=== PATIENT | male | born 1995 | race Caucasian/White ===

== ENCOUNTER 2018-05-19 17:42 | Emergency (ER) | payer BC ==
[2018-05-19] MEDS ORDERED: Ketorolac Tromethamine 60 MG/2 ML VIAL ONE (19:49)
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
--- NOTE | 2018-05-19 20:25 | RAD ---
RIGHT SHOULDER THREE VIEW 05/19/18 HISTORY: Pain. Soreness. COMPARISON: None. FINDINGS: No fracture. No malalignment. The ribs are unremarkable. Acromioclavicular alignment is normal. IMPRESSION: No acute fracture or malalignment. POS: [facility]
== END 2018-05-19 20:50 | disposition home or self-care (01) ==
LOC: ERS 17:42
DX: M54.5 Low back pain (principal); M25.511 Pain in right shoulder; V03.99XA Pedestrian with other conveyance injured in collision with car, pick-up truck or van, unspecified whether traffic or nontraffic accident, initial encounter
CPT/HCPCS: 72100; 96372; J1885